=== PATIENT | female | born 1990 | race Asian ===

== ENCOUNTER 2018-12-30 10:14 | Emergency (ER) | payer BC ==
[2018-12-30] MEDS ORDERED: HYDROmorphone 0.5 MG/0.5 ML Syringe IVPUSH ONE (11:18)
--- NOTE | 2018-12-30 11:22 | EDM.PDOC ---
ED HPI GENERAL MEDICAL PROBLEM - General Chief Complaint: Abdominal Pain Stated Complaint: LOWER ABD PAIN Time Seen by Provider: 12/30/18 11:05 Source of Information: Reports: Patient History Limitations: Reports: No Limitations - History of Present Illness INITIAL COMMENTS - FREE TEXT/NARRATIVE: 28-year-old female who has chronic dysfunctional uterine bleeding, recently had an IUD placed 6 weeks ago but it "fell out" 2-3 weeks ago. This was followed by menstrual bleeding and her primary provider gave her Provera which she finished one week ago. This morning she woke up with lower abdominal cramping and pain and vaginal bleeding. No fevers or chills. Some nausea but no vomiting. Onset: Unknown/Unsure Location: Reports: Abdomen (Woke up with discomfort), Pelvis Improves with: Reports: Other (She tried some Tylenol which helped just a little bit) Worsens with: Reports: Movement Associated Symptoms: Reports: Malaise. Denies: Chest Pain, Shortness of Breath abd Pain Score (Numeric/FACES): 4 - Related Data Allergies Allergy/AdvReac Type Severity Reaction Status Date / Time No Known Allergies Allergy Verified 12/30/18 11:00 Home Meds: Home Meds metFORMIN [Glucophage] 500 mg PO BID 12/30/18 [History] Past Medical History Endocrine/Metabolic History: Reports: Diabetes, Type II Social & Family History - Tobacco Use Smoking Status *Q: Never Smoker - Recreational Drug Use Recreational Drug Use: No ED ROS GENERAL - Review of Systems Review Of Systems: See Below Constitutional: Denies: Fever, Chills Respiratory: Denies: Shortness of Breath Cardiovascular: Denies: Chest Pain GI/Abdominal: Reports: Abdominal Pain. Denies: Diarrhea : Denies: Dysuria Skin: Reports: No Symptoms Neurological: Reports: No Symptoms Psychiatric: Reports: Anxiety ED EXAM, GI/ABD - Physical Exam Exam: See Below Exam Limited By: No Limitations General Appearance: Alert, Mild Distress (Looks fairly uncomfortable) Eyes: Bilateral: Normal Appearance Respiratory/Chest: No Respiratory Distress, Lungs Clear Cardiovascular: Regular Rate, Rhythm GI/Abdominal Exam: Tender (Tender to palpation especially around the periumbilical area into the right and left lower quadrants and suprapubic area, mild guarding) Neurological: Alert, Oriented Psychiatric: Anxious Skin Exam: Warm, Dry Course - Vital Signs Last Recorded V/S: Last Vital Signs Temp 98.3 F 12/30/18 10:59 Pulse 98 12/30/18 10:59 Resp 20 12/30/18 10:59 BP 144/96 H 12/30/18 10:59 Pulse Ox 96 12/30/18 10:59 - Orders/Labs/Meds Labs: Laboratory Tests 12/30/18 12/30/18 12/30/18 Range/Units 11:34 11:34 12:01 WBC 6.7 (4.5-11.0) K/uL RBC 4.19 (3.30-5.50) M/uL Hgb 12.6 (12.0-15.0) g/dL Hct 37.1 (36.0-48.0) % MCV 89 (80-98) fL MCH 30 (27-31) pg MCHC 34 (32-36) % Plt Count 353 (150-400) K/uL Neut % (Auto) 59 (36-66) % Lymph % (Auto) 29 (24-44) % York % (Auto) 10 H (2-6) % Eos % (Auto) 1 L (2-4) % Baso % (Auto) 1 (0-1) % Sodium 136 L (140-148) mmol/L Potassium 4.4 (3.6-5.2) mmol/L Chloride 100 (100-108) mmol/L Carbon Dioxide 21 (21-32) mmol/L Anion Gap 19.4 H (5.0-14.0) mmol/L BUN 14 (7-18) mg/dL Creatinine 0.8 (0.6-1.0) mg/dL Est Cr Clr Drug Dosing 95.05 mL/min Estimated GFR (MDRD) > 60 (>60) Glucose 131 H (74-106) mg/dL Calcium 8.6 (8.5-10.1) mg/dL Total Bilirubin 0.4 (0.2-1.0) mg/dL AST 30 (15-37) U/L ALT 49 (12-78) U/L Alkaline Phosphatase 44 L (46-116) U/L Total Protein 7.9 (6.4-8.2) g/dL Albumin 3.9 (3.4-5.0) g/dL Globulin 4.0 H (2.3-3.5) g/dL Albumin/Globulin Ratio 1.0 L (1.2-2.2) Urine Color Yellow (YELLOW) Urine Appearance Clear (CLEAR) Urine pH 6.0 (5.0-8.0) Ur Specific Antelope 1.025 (1.008-1.030) Urine Protein Negative (NEGATIVE) mg/dL Urine Glucose (UA) Normal (NEGATIVE) mg/dL Urine Ketones Negative (NEGATIVE) mg/dL Urine Occult Blood Trace-intact H (NEGATIVE) Urine Nitrite Negative (NEGATIVE) Urine Bilirubin Negative (NEGATIVE) Urine Urobilinogen Normal (0.2-1.0) EU/dL Ur Leukocyte Esterase Negative (NEGATIVE) Urine RBC Not seen (0-5) Urine WBC 0-5 (0-5) Ur Epithelial Cells Rare Amorphous Sediment Not seen Urine Bacteria Rare Urine Mucus Not seen Urine HCG, Qual 12/30/18 Range/Units 12:01 WBC (4.5-11.0) K/uL RBC (3.30-5.50) M/uL Hgb (12.0-15.0) g/dL Hct (36.0-48.0) % MCV (80-98) fL MCH (27-31) pg MCHC (32-36) % Plt Count (150-400) K/uL Neut % (Auto) (36-66) % Lymph % (Auto) (24-44) % York % (Auto) (2-6) % Eos % (Auto) (2-4) % Baso % (Auto) (0-1) % Sodium (140-148) mmol/L Potassium (3.6-5.2) mmol/L Chloride (100-108) mmol/L Carbon Dioxide (21-32) mmol/L Anion Gap (5.0-14.0) mmol/L BUN (7-18) mg/dL Creatinine (0.6-1.0) mg/dL Est Cr Clr Drug Dosing mL/min Estimated GFR (MDRD) (>60) Glucose (74-106) mg/dL Calcium (8.5-10.1) mg/dL Total Bilirubin (0.2-1.0) mg/dL AST (15-37) U/L ALT (12-78) U/L Alkaline Phosphatase (46-116) U/L Total Protein (6.4-8.2) g/dL Albumin (3.4-5.0) g/dL Globulin (2.3-3.5) g/dL Albumin/Globulin Ratio (1.2-2.2) Urine Color (YELLOW) Urine Appearance (CLEAR) Urine pH (5.0-8.0) Ur Specific Antelope (1.008-1.030) Urine Protein (NEGATIVE) mg/dL Urine Glucose (UA) (NEGATIVE) mg/dL Urine Ketones (NEGATIVE) mg/dL Urine Occult Blood (NEGATIVE) Urine Nitrite (NEGATIVE) Urine Bilirubin (NEGATIVE) Urine Urobilinogen (0.2-1.0) EU/dL Ur Leukocyte Esterase (NEGATIVE) Urine RBC (0-5) Urine WBC (0-5) Ur Epithelial Cells Amorphous Sediment Urine Bacteria Urine Mucus Urine HCG, Qual Negative Meds: Medications Discontinued Medications Generic Name Dose Route Start Last Admin Trade Name Freq PRN Reason Stop Dose Admin Hydromorphone HCl 0.5 mg 12/30/18 11:18 12/30/18 11:34 Dilaudid IVPUSH 12/30/18 11:19 0.5 mg ONETIME ONE Administration Ketorolac Tromethamine 30 mg 12/30/18 13:12 12/30/18 13:17 Toradol IVPUSH 12/30/18 13:13 30 mg ONETIME ONE Administration - Re-Assessments/Exams Free Text/Narrative Re-Assessment/Exam: 12/30/18 11:21 An IV was started, CBC and CMP obtained. The patient urinated and it was grossly bloody so a UA by mini catheter will be obtained. After IV was started she was given 0.5 mg of IV Dilaudid. 12/30/18 14:04 CBC and CMP were basically normal. White count was normal, hemoglobin normal. Mini catheter UA was also completely clear and urine was negative. 12/30/18 14:05 CT of the abdomen and pelvis was normal without any acute findings. Prior to the CT report, she was given 30 mg of IV Toradol and her pain was almost resolved on discharge. She was given 20 more doses of Toradol take 1 every 6 hours and will follow up with [facility] as soon as possible. Departure - Departure Time of Disposition: 14:25 Disposition: Home, Self-Care 01 Clinical Impression: Menorrhagia Qualifiers: Menorrahagia type: with irregular cycle Qualified Code(s): N92.1 - Excessive and frequent menstruation with irregular cycle Abdominal pain Qualifiers: Abdominal location: lower abdomen, unspecified Qualified Code(s): R10.30 - Lower abdominal pain, unspecified - Discharge Information Instructions: Abnormal Uterine Bleeding Referrals: PCP,None [Primary Care Provider] - Forms: ED Department Discharge Care Plan Goals: Take one ketorolac every 6 hours until pain subsides. Discuss any further treatment or possible hormone treatment with your [facility] provider next week.
[2018-12-30] MEDS ORDERED: Ketorolac 30 MG/ML SDV IVPUSH ONE (13:12)
--- NOTE | 2018-12-30 14:02 | CRLCT ---
Indication: Lower abdominal pain Technique: Routine noncontrast abdomen and pelvis CT Please note that all CT scans at this facility use dose modulation, iterative reconstruction, and/or weight-based dosing when appropriate to reduce radiation dose to as low as reasonably achievable. Comparison: No comparison Findings: Mild atelectasis both lung bases. No pleural effusion. Diffuse fatty infiltration of the liver. Gallbladder normal. No biliary obstruction. Incidental duodenal diverticulum measuring 13 millimeters. Pancreas normal. Normal adrenal glands and spleen. Nonobstructing 5 millimeter stone lower pole right kidney. Nonobstructing 3 millimeter stone lower pole left kidney. Ureters are normal. Normal appendix. Uterus is anteverted and retroflexed. Ovaries normal. No adnexal mass. No free fluid. No bowel obstruction or inflammatory changes. No abscess or adenopathy. No compression fracture or destructive osseous lesion. Impression: Nonobstructing stones within both kidneys measuring up to 5 millimeters. Normal appendix. Normal ovaries. No adnexal mass. Anteverted and retroflexed uterus. Diffuse hepatic steatosis. Please note that all CT scans at this facility use dose modulation, iterative reconstruction, and/or weight-based dosing when appropriate to reduce radiation dose to as low as reasonably achievable. Dictated by Dwight Merritt MD @ Dec 30 2018 1:40PM Signed by Dr. Dwight Merritt @ Dec 30 2018 2:00PM
== END 2018-12-30 14:25 | disposition home or self-care (01) ==
LOC: JP.ED 10:14
DX: N92.1 Excessive and frequent menstruation with irregular cycle (principal); E11.9 Type 2 diabetes mellitus without complications
CPT/HCPCS: 36415; 74176; 80053; 81001; 81025; 85025; 96374; 96375; 99284; J1170; J1885